=== PATIENT | female | born 1990 | race Caucasian/White ===

== ENCOUNTER 2025-02-07 13:38 | Inpatient (IN) | payer OTHER ==
[~2025-02-07] VITALS: Ht 172.7 cm; Wt 81.4 kg
[2025-02-07] MEDS: IV NS 0.9% 1,000 ML BAG IV ONE (14:25)
[2025-02-07] MEDS ORDERED: FAMOTIDINE/PF INJ 20 MG/2 ML VIAL IV ONE (14:27)
[2025-02-07] MEDS ORDERED: ONDANSETRON HCL/PF 4 MG/2 ML VIAL ONE (14:27)
[2025-02-07] MEDS ORDERED: KETOROLAC TROMETHAMINE 15 MG/ML VIAL ONE (14:27)
[2025-02-07] MEDS: ONDANSETRON HCL/PF 4 MG/2 ML VIAL IV ONE (14:30)
[2025-02-07] MEDS: KETOROLAC TROMETHAMINE 15 MG/ML VIAL IV ONE (14:30)
[2025-02-07] MEDS: FAMOTIDINE/PF INJ 20 MG/2 ML VIAL IV ONE (14:32)
[2025-02-07 14:43] LABS: PLATELET COUNT (AUTO) 270 K/uL (150-450); RED BLOOD CELL COUNT(AUTO) 4.78 MIL/uL (4.0-5.2); RED CELL DISTRIBUTION WIDTH 13.2 % (11.5-15.0); WHITE BLOOD COUNT (AUTO) 15.2 K/uL (4.3-11.0)
[2025-02-07 14:49] LABS: CALCIUM, SERUM 8.6 mg/dL (8.5-10.1); CREATININE 0.6 mg/dL (0.6-1.3); SODIUM SERUM 140.0 mmol/L (136-145); UREA NITROGEN, BLOOD 8.0 mg/dL (7-18)
[2025-02-07 14:56] LABS: ASPARTATE AMINOTRANSFERASE 38.0 U/L (15-37); TOTAL PROTEIN, SERUM 7.7 g/dL (6.4-8.2)
[2025-02-07] MEDS ORDERED: MORPHINE SULFATE INJ 4 MG/ML DISP.SYRIN ONE (15:14)
[2025-02-07] MEDS: MORPHINE SULFATE INJ 2 MG/ML DISP.SYRIN IV ONE (15:20)
[2025-02-07] MEDS ORDERED: Magnesium 1 GM/2 ML VIAL IV ONE (15:30)
[2025-02-07 15:48] LABS: APPEARANCE,URINE SLIGHTLY CLOUDY (CLEAR); BLOOD, URINE TRACE-INTA Ery/uL (NEGATIVE); LEUKOCYTE ESTERASE ,URINE 1+ (NEGATIVE); NITRITE, URINE NEGATIVE (NEGATIVE); UGLUCOSE NEGATIVE (NEGATIVE)
[2025-02-07 15:56] LABS: ADD URINE CULTURE YES
[2025-02-07 16:01] LABS: PREGNANCY TEST URINE QUAL NEGATIVE (NEGATIVE)
[2025-02-07] MEDS ORDERED: IOHEXOL-300 100 ML VIAL IV ONE (16:24)
[2025-02-07] MEDS ORDERED: IV NS 0.9% 250 ML IV ONE (16:24)
[2025-02-07] MEDS ORDERED: CT SWABBABLE VALVE TRANS SET 1 EA INFUS.SET MC ONE (16:24)
[2025-02-07] MEDS ORDERED: FENTANYL PF 100MCG/2ML AMPUL ONE ×2 (16:38→17:59)
[2025-02-07] MEDS: FENTANYL PF 100MCG/2ML AMPUL IV ONE ×2 (16:42→18:00)
[2025-02-07] MEDS: DOXYCYCLINE 100 MG in IV D5W 100 ML IV ONE (16:50)
[2025-02-07] MEDS ORDERED: METH5TAB6 PO (17:22)
[2025-02-07] MEDS ORDERED: DOXYCYCLINE HYCLATE (100 MG) 100 MG TABLET ONE (17:51)
[2025-02-07] MEDS: DOXYCYCLINE HYCLATE (100 MG) 100 MG TABLET PO ONE (17:55)
[2025-02-07] MEDS: VANCOMYCIN 1 GM in IV D5W 250 ML IV ONE (17:56)
[2025-02-07 18:00] VITALS: O2SAT 97
[2025-02-07] MEDS ORDERED: MAGNESIUM HYDROXIDE 30 ML UDC PO PRN (20:00)
[2025-02-07] MEDS ORDERED: ACETAMINOPHEN 325 MG TABLET PO PRN (20:00)
[2025-02-07] MEDS ORDERED: MAG HYDROX/AL HYDROX/SIMETH 30 ML UDC PO PRN (20:00)
[2025-02-07] MEDS ORDERED: ACETAMINOPHEN 325 MG TABLET ONE (20:01)
[2025-02-07] MEDS: ACETAMINOPHEN 325 MG TABLET PO PRN (20:03)
[2025-02-07] MEDS ORDERED: IBUPROFEN 600 MG TABLET ONE (20:13)
[2025-02-07] MEDS: IBUPROFEN 600 MG TABLET PO ONE (20:15)
[2025-02-07 20:30] VITALS: BP 133/115; TEMP 99; O2SAT 98
[2025-02-07] MEDS: CEFTRIAXONE 1 G in IV D5W 50 ML IV SCH (20:46)
[2025-02-07] MEDS: IV NS 0.9% 1,000 ML IV SCH (20:46)
[2025-02-07] MEDS: KETOROLAC TROMETHAMINE 15 MG/ML VIAL IV SCH (20:47)
[2025-02-07] MEDS: MORPHINE SULFATE INJ 4 MG/ML DISP.SYRIN IV PRN (21:55)
[2025-02-08] MEDS: DOXYCYCLINE HYCLATE (100 MG) 100 MG TABLET PO SCH (05:47)
[2025-02-08 06:46] LABS: PLATELET COUNT (AUTO) 235 K/uL (150-450); RED BLOOD CELL COUNT(AUTO) 4.46 MIL/uL (4.0-5.2); RED CELL DISTRIBUTION WIDTH 13.2 % (11.5-15.0); WHITE BLOOD COUNT (AUTO) 11.7 K/uL (4.3-11.0)
[2025-02-08 08:00] VITALS: BP 127/75; TEMP 100.9; O2SAT 97
[2025-02-08 08:08] LABS: CALCIUM, SERUM 8.1 mg/dL (8.5-10.1); CREATININE 0.6 mg/dL (0.6-1.3); PHOSPHORUS 2.8 mg/dL (2.5-4.9); SODIUM SERUM 139.0 mmol/L (136-145); UREA NITROGEN, BLOOD 8.0 mg/dL (7-18)
[2025-02-08] MEDS: PANTOPRAZOLE 40 MG TABLET.DR PO SCH (08:11)
[2025-02-08] MEDS: ONDANSETRON HCL/PF 4 MG/2 ML VIAL IVP PRN (08:16)
[2025-02-08] MEDS: TRIAMCINOLONE ACETONIDE 0.1% CR 15 GM TUBE TP SCH (10:35)
[2025-02-08] MEDS ORDERED: IBUPROFEN 800 MG TABLET PO PRN (11:00)
[2025-02-08] MEDS: HYDROMORPHONE 1 MG/1 ML DISP.SYRIN IV PRN (11:12)
[2025-02-08] MEDS: SUCRALFATE 1 G/10 ML UDC GT SCH (11:26)
[2025-02-08] MEDS: LIDOCAINE VISCOUS 2% UD 15 ML UDC MM PRN (11:31)
[2025-02-08] MEDS: CEFEPIME 2 GM in IV D5W 100 ML IV SCH (12:21)
[2025-02-08 14:18] LABS: RHEUMATOID FACTOR SCREEN NEGATIVE (NEGATIVE)
[2025-02-08 16:00] VITALS: BP 118/76; TEMP 98.4; O2SAT 96
[2025-02-08 20:54] VITALS: BP 129/78; TEMP 99; O2SAT 99
[2025-02-09] MEDS: MENTHOL/CETYLPYRD (CEPACOL) 1 LOZ LOZENGE PO PRN (01:49)
[2025-02-09 06:50] LABS: PLATELET COUNT (AUTO) 255 K/uL (150-450); RED BLOOD CELL COUNT(AUTO) 4.33 MIL/uL (4.0-5.2); RED CELL DISTRIBUTION WIDTH 12.8 % (11.5-15.0); WHITE BLOOD COUNT (AUTO) 10.8 K/uL (4.3-11.0)
[2025-02-09 07:30] LABS: ASPARTATE AMINOTRANSFERASE 13.0 U/L (15-37); CALCIUM, SERUM 8.4 mg/dL (8.5-10.1); CREATININE 0.4 mg/dL (0.6-1.3); PHOSPHORUS 2.7 mg/dL (2.5-4.9); SODIUM SERUM 140.0 mmol/L (136-145); TOTAL PROTEIN, SERUM 6.9 g/dL (6.4-8.2); UREA NITROGEN, BLOOD 7.0 mg/dL (7-18)
[2025-02-09 08:00] VITALS: BP 115/79; TEMP 98.2; O2SAT 98
[2025-02-09] MEDS: POTASSIUM CHLORIDE 20 MEQ TAB.PRT.SR PO ONE (12:13)
[2025-02-09] MEDS: SUCRALFATE 1 G TABLET PO SCH (12:13)
[2025-02-09 16:00] VITALS: BP 103/62; TEMP 97.9; O2SAT 98
[2025-02-09 20:00] VITALS: BP 114/71; TEMP 98.1; O2SAT 97
[2025-02-09] MEDS: IBUPROFEN 400 MG TABLET PO PRN (21:05)
[2025-02-10 07:07] LABS: PLATELET COUNT (AUTO) 295 K/uL (150-450); RED BLOOD CELL COUNT(AUTO) 4.41 MIL/uL (4.0-5.2); RED CELL DISTRIBUTION WIDTH 12.6 % (11.5-15.0); WHITE BLOOD COUNT (AUTO) 7.9 K/uL (4.3-11.0)
[2025-02-10 07:30] LABS: CALCIUM, SERUM 8.8 mg/dL (8.5-10.1); CREATININE 0.5 mg/dL (0.6-1.3); PHOSPHORUS 3.3 mg/dL (2.5-4.9); SODIUM SERUM 142.0 mmol/L (136-145); UREA NITROGEN, BLOOD 7.0 mg/dL (7-18)
[2025-02-10 08:00] VITALS: BP 109/74; TEMP 98.6; O2SAT 98
[2025-02-10] MEDS ORDERED: DOXY-226 PO (10:47)
[2025-02-12 13:08] LABS: *ANA ANTI-CENTROMERE B AB <0.2 AI (0.0-0.9); *ANA ANTI-DNA(DS) AB, QN 1 IU/mL (0-9); *ANA ANTI-JO-1 <0.2 AI (0.0-0.9); *ANA ANTICHROMATIN ANTIBODY <0.2 AI (0.0-0.9); *ANA RNP ANTIBODIES <0.2 AI (0.0-0.9); *ANA SJOGREN'S ANTI-SS-A <0.2 AI (0.0-0.9); *ANA SJOGREN'S ANTI-SS-B <0.2 AI (0.0-0.9); *ANAANTI-SCLERODERMA-70 AB <0.2 AI (0.0-0.9); *ANASMITH AB <0.2 AI (0.0-0.9)
== END 2025-02-10 11:40 | disposition home or self-care (01) | DRG 872 ==
LOC: ER 13:45 → MED 18:41 → TELE 20:43 → MED 21:15
PROVIDERS: ATTEND Nurse Practitioner Acute Care
DX: A41.9 Sepsis, unspecified organism (principal); N39.0 Urinary tract infection, site not specified; A27.9 Leptospirosis, unspecified; A90 Dengue fever [classical dengue]; A92.0 Chikungunya virus disease; R52 Pain, unspecified; Z85.71 Personal history of Hodgkin lymphoma; D72.829 Elevated white blood cell count, unspecified; W56.81XA Bitten by other nonvenomous marine animals, initial encounter; Y93.89 Activity, other specified; Y92.89 Other specified places as the place of occurrence of the external cause; D64.9 Anemia, unspecified; E03.9 Hypothyroidism, unspecified; Z88.0 Allergy status to penicillin; E05.90 Thyrotoxicosis, unspecified without thyrotoxic crisis or storm; Z20.822 Contact with and (suspected) exposure to COVID-19; B96.20 Unspecified Escherichia coli [E. coli] as the cause of diseases classified elsewhere; D72.821 Monocytosis (symptomatic); R70.0 Elevated erythrocyte sedimentation rate; R79.82 Elevated C-reactive protein (CRP); T78.49XA Other allergy, initial encounter; L50.0 Allergic urticaria; B97.89 Other viral agents as the cause of diseases classified elsewhere
CPT/HCPCS: 36415; 71045-TC; 80048-TC; 80053-TC; 80076-TC; 81001; 82550-TC; 83605-TC; 83615-TC; 83735-TC; 84100-TC; 84703-TC; 85025-TC; 85652-TC; 86140-TC; 86225; 86235; 86431-TC; 87040-TC; 87086-TC; 87186-TC; A4223; G0378; J0692; J0696; J1171; J1308; J1885; J2270; J2405; J3010; J3373; J3490; J7030; J7050; J7060; Q9967